=== PATIENT | female | born 1995 | race Caucasian/White ===

== ENCOUNTER 2023-07-27 09:23 | Emergency (ER) | payer MEDICAID ==
[~2023-07-27] VITALS: Ht 167.6 cm; Wt 58.1 kg
[~2023-07-27 09:23] MED LIST: ADDERALL 20 MG20 MG PO; ADDERALL XR20 MG PO; GUAIFENESIN AC473 M1 PO; HYDROXYZINE PAM25 M1 PO; Motrin,Rufen800 MG PO; PROVENTIL HFA6.7 GM INH; SINGULAIR10 M1 PO; VENT7GM INH; VITAMIN D350 MCG PO; ZITHROMAX500 MG PO; [UNRECOGNIZED DRUG - REMARK]
[2023-07-27] MEDS ORDERED: Albuterol Sulf/Ipratropium 3 ML VIAL NEB ONE (09:55)
[2023-07-27 10:02] LABS: HEMATOCRIT 38.8 % (37.0-47.0); MEAN CELL VOLUME 92.6 fl (81.0-99.0); MEAN CORPUSCULAR HGB 30.1 pg (27.0-31.0); MEAN CORPUSCULAR HGB CONC 32.5 g/dl (33.0-37.0); MEAN PLATELET VOLUME 9.8 fl (9.6-12.3); PLATELET COUNT AUTOMATED 325 10*3/uL (130-400); RED BLOOD COUNT 4.19 10*6/uL (4.10-5.10); RED CELL DISTRI WIDTH 15.4 % (0-14.5); WHITE BLOOD COUNT 6.8 10*3/uL (4.8-10.8)
[2023-07-27 10:09] LABS: MANUAL DIFF REFLEX YES
[2023-07-27 10:19] LABS: CHLORIDE 107 mmol/L (98-107)
[2023-07-27 10:20] LABS: BUN < 5 mg/dl (9-23)
[2023-07-27 10:25] LABS: BASOPHILS 2 % (0-1); PLATELET SUFFICIENCY NORMAL (NORMAL); POLYCHROMASIA SLIGHT; TOTAL CELLS COUNTED 100 #CELLS
[2023-07-27] MEDS ORDERED: ZITHROMAX250 MG PO (12:11)
[2023-07-27] MEDS ORDERED: PULMICORT FLEX90 MCG INH (12:11)
[2023-07-27] MEDS ORDERED: PREDNISONE50 MG PO (12:11)
== END 2023-07-27 12:19 | disposition home or self-care (01) ==
LOC: ED 09:23
PROVIDERS: Internal Medicine
DX: J45.909 Unspecified asthma, uncomplicated (principal); F41.9 Anxiety disorder, unspecified; F32.A Depression, unspecified; F17.210 Nicotine dependence, cigarettes, uncomplicated; F12.90 Cannabis use, unspecified, uncomplicated